=== PATIENT | male | born 1965 | race Caucasian/White ===

== ENCOUNTER 2021-07-13 15:40 | Inpatient (IN) | payer SELFPAY ==
[2021-07-13 16:41] LABS: Potassium 3.8 mmol/L (3.5-5.1); Troponin High Sensitivity 5.8 pg/mL (<58.9)
[2021-07-13 16:42] LABS: Absolute Lymphocytes (CBC) 0.8 K/uL (0.7-4.9); Hematocrit 39.6 % (39.6-49.0); Lymphocytes % 8.7 % (15.3-44.8); MPV 8.7 fL (7.6-11.3); RBC Red Blood Cell Count 4.78 M/uL (4.33-5.43)
--- NOTE | 2021-07-13 16:48 | RAD REPORT ---
EXAM DESCRIPTION: CT - Head Brain Wo Cont - 07/13/2021 4:42 pm CLINICAL HISTORY: Neuro deficit, acute, stroke suspected Headache, drowsiness COMPARISON: HEAD BRAIN W O CONTRAST dated 08/15/2012 TECHNIQUE: All CT scans are performed using dose optimization technique as appropriate and may inclu de automated exposure control or mA/KV adjustment according to patient size. FINDINGS: No intracranial hemorrhage, hydrocephalus or extra-axial fluid collection.Gliosis is prese nt in the distribution of the right middle cerebral artery compatible with old infarct.No areas of br ain edema or evidence of midline shift. The paranasal sinuses and mastoids are clear. The calvarium is intact. IMPRESSION: No acute intracranial abnormality. Large old right-sided middle cerebral artery territo ry infarct. If there is continued clinical concern for CVA, MR imaging of the brain would be recommended.
--- NOTE | 2021-07-13 18:16 | RAD REPORT ---
EXAM DESCRIPTION: RAD - Chest Single View - 07/13/2021 5:45 pm CLINICAL HISTORY: DYSPNEA Chest pain. COMPARISON: CHEST SINGLE VIEW dated 08/15/2012 FINDINGS: Portable technique limits examination quality. Asymmetric pulmonary opacities are present, worse on the right, likely representing pneumonia. The he art is normal in size. No displaced fractures.
--- NOTE | 2021-07-13 20:01 | RAD REPORT ---
EXAM DESCRIPTION: MRI - C Spine Wo Cont- 07/13/2021 7:47 pm CLINICAL HISTORY: arm numbness Neck pain, radiculopathy COMPARISON: No comparisonsNo comparisons FINDINGS: Cervical vertebral bodies are normal in height and alignment. No suspicious marrow edema or marrow replacing process. No fracture or traumatic subluxation. The craniocervical junction is normal. C2-3 level: Small posterior osteophyte/ disc complex is present with herniated disc material seen ext ending superiorly. This results in mild central canal narrowing. Left-sided uncovertebral spurring na rrows the left exit foramen. C3-4 level: Small disc/ osteophyte complex is present attenuating the anterior subarachnoid space. C4-5 level: Small disc/ osteophyte complex attenuates the anterior subarachnoid space. C5-6 level: Posterior osteophyte/ disc complex is present with left paracentral herniated component. Moderate bilateral uncovertebral spurring is seen significantly narrowing both exit foramina. C6-7 level: No significant findings. C7-T1 level: No significant findings. Cervical cord is normal in size and signal. There is a large mass in the subcutaneous soft tissues of the posterior neck measuring 5.1 x 3.8 cm. IMPRESSION: Significant bilateral exit foraminal stenosis at C5-6. Herniated discs are noted at C2-3 and C5-6. Large soft tissue mass is seen in the subcutaneous tissues of the posterior neck measuring 5.1 x 3.8 cm. This is of unclear etiology but could be malignant. Recommend clinical exam correlation.
--- NOTE | 2021-07-13 20:18 | RAD REPORT ---
EXAM DESCRIPTION: MRI - Brain Wo Cont - 07/13/2021 7:57 pm CLINICAL HISTORY: Neuro deficit, acute, stroke suspected Headache, drowsiness, CVA COMPARISON: Head Brain Wo Cont dated 07/13/2021 TECHNIQUE: Multi-sequence, multiplanar MR imaging of the brain was performed without contrast. FINDINGS: No intracranial hemorrhage, hydrocephalus or extra-axial fluid collections. No edema or sh ift of midline structures. No findings to suspect brain mass.Moderate sized area of gliosis right mid dle cerebral artery territory compatible with old infarction. There are extensive areas of acute infa rct is seen superior left frontal lobe and the left centrum semiovale white matter, largest measuring 26 mm. Additional punctate areas of CVA air seen right superior frontal lobe. No hemorrhagic compone nt. Midline structures are normally formed. Mastoid air cells and paranasal sinuses are clear. IMPRESSION: Extensive areas of acute CVA seen left superior frontal lobe cortex. In addition, multip le punctate infarcts present scattered throughout the left centrum semiovale and to a lesser extent t he right centrum semiovale white matter. The pattern of infarction raises suspicion for an embolic phenomenon.
--- NOTE | 2021-07-13 20:41 | ER ---
Nurse's Notes [facility] Name: Bernardino Watson Age: 55 yrs Sex: Male : 1965 Arrival Date: 07/13/2021 Time: 15:43 Bed 20 Private MD: Diagnosis: Cerebral infarction, unspecified Presentation: 07/13 15:47 Chief complaint: Patient states: had a stroke about 4-5 years ago that affected the iw left side of his body but now he has weakness on the right side of his body that started 3 days ago. Coronavirus screen: At this time, the client does not indicate any symptoms associated with coronavirus-19. Ebola Screen: Patient negative for fever greater than or equal to 101.5 degrees Fahrenheit, and additional compatible Ebola Virus Disease symptoms Patient denies exposure to infectious person. Patient denies travel to an Ebola-affected area in the 21 days before illness onset. No symptoms or risks identified at this time. No acute neurological deficit is noted. Pre-hospital glucose is not applicable to this patient. Initial Sepsis Screen: Does the patient meet any 2 criteria? No. Patient's initial sepsis screen is negative. Does the patient have a suspected source of infection? No. Patient's initial sepsis screen is negative. Risk Assessment: Do you want to hurt yourself or someone else? Patient reports no desire to harm self or others. Onset of symptoms was July 10, 2021. 15:47 Method Of Arrival: Wheelchair iw 15:47 Acuity: ZACH 3 iw Triage Assessment: 18:38 The onset of the patients symptoms was July 10, 2021 at 13:00. General: Appears in no haque apparent distress. Behavior is calm, cooperative. 18:39 Neuro: Reports numbness in right arm weakness in right arm. haque Stroke Activation: Symptom onset > 6 hours Physician: Stroke Attending; Name: ; Notified At: ; Arrived At: Physician: Chief Stroke Resident; Name: ; Notified At: ; Arrived At: Physician: Stroke Resident; Name: ; Notified At: ; Arrived At: Physician: ED Attending; Name: ; Notified At: ; Arrived At: Physician: ED Resident; Name: ; Notified At: ; Arrived At: Historical: - Allergies: 15:49 No Known Allergies; iw - Home Meds: 15:49 None [Active]; iw - PMHx: 15:49 CVA; iw - PSHx: 15:49 None; iw - Immunization history:: Client reports having NOT received the Covid vaccine. - Social history:: Smoking status: Patient reports the use of cigarette tobacco products, smokes one pack cigarettes per day. Screenin:53 Abuse screen: Denies threats or abuse. Nutritional screening: No deficits noted. haque Tuberculosis screening: No symptoms or risk factors identified. Fall Risk IV access (20 points). 21:06 Patient has been NPO before screening. The patient is alert, able to follow commands. ag7 The patient does not exhibit slurred or garbled speech The patient is not exhibiting difficulty speaking. The patient does not exhibit difficulty understanding words. The patient is able to swallow own secretions with no drooling or need for suction. Patient tolerated one teaspoon of water. No drooling, immediate coughing, gurgling, or clearing of the throat was noted. The patient tolerated 90mL of water. No drooling, immediate coughing, gurgling, or clearing of the throat was noted. The patient passed the bedside swallow screening. Oral medications may be given as ordered. Contact Physician for further diet orders. Provider notified of bedside swallow screening results: Naman Couch LUMBER SCALER-C. Assessment: 15:53 VAN Scoring: Arm Drift: Flaccid/no antigravity. Reassessment: pt has a notable lump on haque the back of his neck. pt reported that it has increase. Pain: Denies pain. Neuro: No deficits noted. 18:32 Patient has been NPO before screening. The patient is alert, and able to follow haque commands. The patient does not exhibit slurred or garbled speech. The patient is not exhibiting difficulty speaking. The patient does not exhibit difficulty understanding words. The patient is able to swallow own secretions with no drooling or need for suction. Patient tolerated one teaspoon of water. No drooling, immediate coughing, gurgling, or clearing of the throat was noted. The patient tolerated 90mL of water. No drooling, immediate coughing, gurgling, or clearing of the throat was noted. The patient passed the bedside swallow screening. Oral medications may be given as ordered. Contact Physician for further diet orders. Provider notified of bedside swallow screening results: Shaun ESTES. T-PA (Activase) Screening: Indications: Contraindications:. 19:12 Reassessment: Patient and/or family updated on plan of care and expected duration. Pain ag7 level reassessed. Patient is alert, oriented x 3, equal unlabored respirations, skin warm/dry/pink. patient c/o no right upper extremity mobility, sensation intact Patient denies pain at this time. 19:19 Reassessment: Patient off of the floor for MRI. ag7 20:07 Reassessment: Reassessment: Patient and/or family updated on plan of care and expected ag7 duration. Pain level reassessed. Patient is alert, oriented x 3, equal unlabored respirations, skin warm/dry/pink. Patient return from MRI via stretcher alert and awake family at bedside. 23:34 Reassessment: Patient and/or family updated on plan of care and expected duration. Pain ag7 level reassessed. Patient is alert, oriented x 3, equal unlabored respirations, skin warm/dry/pink. Report given to Britton MORROW, [facility] RM 219 Patient states feeling better. Vital Signs: 15:47 BP 138 / 75; Pulse 120; Resp 16; Temp 99.9; Pulse Ox 98% on R/A; Weight 75.75 kg; iw Height 6 ft. 2 in. (187.96 cm); Pain 0/10; 17:41 BP 141 / 81; Pulse 95; Resp 18; Pulse Ox 100% on R/A; haque 19:13 BP 150 / 79; Pulse 83; Resp 15; Pulse Ox 100% on R/A; Pain 0/10; ag7 15:47 Body Mass Index 21.44 (75.75 kg, 187.96 cm) iw NIH Stroke Scale Scores: 15:53 NIHSS Score: 10 haque 16:12 NIHSS Score: 4 [facility] ED Course: 15:43 Patient arrived in ED. ds1 15:49 Triage completed. iw 15:50 Arm band placed on. iw 15:53 Salome Franklin, CRISTHIAN is Primary Nurse. haque 15:55 Shaun Diallo PA is PHCP. jr8 15:55 Landon Lucio MD is Attending Physician. jr8 16:44 CT Head Brain wo Cont In Process Unspecified. EDMS 17:47 XRAY Chest (1 view) In Process Unspecified. EDMS 18:39 Patient has correct armband on for positive identification. Placed in gown. Bed in low haque position. Call light in reach. 18:39 No provider procedures requiring assistance completed. Inserted saline lock: 18 gauge haque in left antecubital area, using aseptic technique. 19:49 C Spine Wo Cont In Process Unspecified. EDMS 19:49 MRI - Brain Wo Cont In Process Unspecified. EDMS 20:41 Nahum Saavedra MD is Hospitalizing Provider. jr8 21:23 COVID-19/FLU A+B (Document "Date of Onset" if Symptomatic) Sent. ag7 07/14 00:34 Patient admitted, IV remains in place. ag7 Administered Medications: 07/13 20:38 Not Given (Physician Discretion): PlaVIX (clopidogrel) 75 mg PO once jr8 20:39 Not Given (Physician Discretion): Aspirin 81 mg PO once jr8 20:52 Drug: foLIC Acid 1 mg Route: IVPB; Site: left antecubital; ag7 20:52 Follow up: Response: No adverse reaction; IV Status: Completed infusion; IV Intake: ag7 0.2ml 20:53 Drug: Atorvastatin 40 mg Route: PO; ag7 21:30 Follow up: Response: No adverse reaction ag7 20:58 CANCELLED (PHYSICIAN REQUESTt): Eliquis (apixaban) 5 mg PO once ag7 21:06 Drug: PlaVIX (clopidogrel) 75 mg Route: PO; ag7 21:06 Drug: Aspirin 81 mg Route: PO; ag7 21:36 Follow up: Response: No adverse reaction ag7 21:14 Drug: Nicoderm CQ Patch 21 mg/24 hr 1 patches {Note: posterior right upper chest.} ag7 Route: Transdermal; Site: affected area; 21:44 Follow up: Response: No adverse reaction ag7 Intake: 20:52 IV: 0ml; Total: 0ml. ag7 Outcome: 20:41 Decision to Hospitalize by Provider. 8 07/14 00:33 Admitted to Med/surg accompanied by tech, via wheelchair, room 219, Report called to satish Jarquin RN Condition: stable 00:35 Patient left the ED. ag7 NIH Stroke Scale - NIH Stroke Score Date: 07/13/2021 Time: 15:53 Total Score = 10 1a. Level of Consciousness (LOC) - 0(Alert) 1b. Level of Consciousness (LOC) (Month \\T\\ Age) - 0(Both) 1c. LOC Commands (Open \\T\\ Closes Eyes/Hydraulic Mechanic) - 0(Both) 2. Best Gaze (Lateral Gaze Paresis) - 0(Normal) 3. Visual Field Loss - 0(No visual loss) 4. Facial Palsy - 0(Normal) 5a. Left Arm: Motor (10-second hold) - 4(No movement) 5b. Right Arm: Motor (10-second hold) - 4(No movement) 6a. Left Leg: Motor (5-second hold - always test supine) - 0(No drift) 6b. Right Leg: Motor (5-second hold - always test supine) - 0(No drift) 7. Limb Ataxia (finger/nose \\T\\ heel/rebollar - test with eyes open) - 1(Present in one limb) 8. Sensory Loss (pinprick arms/legs/face) - 1(Mild to moderate loss) 9. Best Language: Aphasia (description/naming/reading) - 0(No aphasia) 10. Dysarthria (speech clarity - read or repeat words) - 0(Normal) 11. Extinction and Inattention (visual/tactile/auditory/spatial/personal) - 0(No abnormality) Initials: NIH Stroke Scale - NIH Stroke Score Date: 07/13/2021 Time: 16:12 Total Score = 4 1a. Level of Consciousness (LOC) - 0(Alert) 1b. Level of Consciousness (LOC) (Month \\T\\ Age) - 0(Both) 1c. LOC Commands (Open \\T\\ Closes Eyes/Hydraulic Mechanic) - 0(Both) 2. Best Gaze (Lateral Gaze Paresis) - 0(Normal) 3. Visual Field Loss - 0(No visual loss) 4. Facial Palsy - 0(Normal) 5a. Left Arm: Motor (10-second hold) - 0(No drift) 5b. Right Arm: Motor (10-second hold) - 4(No movement) 6a. Left Leg: Motor (5-second hold - always test supine) - 0(No drift) 6b. Right Leg: Motor (5-second hold - always test supine) - 0(No drift) 7. Limb Ataxia (finger/nose \\T\\ heel/rebollar - test with eyes open) - 0(Absent) 8. Sensory Loss (pinprick arms/legs/face) - 0(Normal) 9. Best Language: Aphasia (description/naming/reading) - 0(No aphasia) 10. Dysarthria (speech clarity - read or repeat words) - 0(Normal) 11. Extinction and Inattention (visual/tactile/auditory/spatial/personal) - 0(No abnormality) Initials: jrRosette Signatures: Dispatcher [employer] [facility] Rosy Friedman ds1 Brandi Sher RN RN Shaun Daillo PA PA jr8 Salome Franklin RN RN Betsey Leroy RN RN ag7 Corrections: (The following items were deleted from the chart) 07/13 15:50 15:47 Pulse 120bpm; Resp 16bpm; Pulse Ox 98% RA; Temp 99.9F; 75.75 kg; Height 6 iw ft. 2 in.; BMI: 21.4; Pain 0/10; iw 20:08 19:19 Reassessment: Patient off of the floor for CT ag7 ag7 20:53 20:51 Eliquis (apixaban) 5 mg PO ag7 ag7 23:34 21:30 Response: No adverse reaction ag7 ag7 07/14 00:34 07/13 23:34 Reassessment: Report given to Britton MORROW, [facility] RM 219 ag7 ag7
--- NOTE | 2021-07-13 20:42 | EDPHYS ---
Physician Documentation [facility] Name: Bernardino Watson Age: 55 yrs Sex: Male : 1965 Arrival Date: 07/13/2021 Time: 15:43 Bed 20 Private MD: ED Physician Landon Lucio HPI: 07/13 16:09 This 55 yrs old Male presents to ER via Wheelchair with complaints of S/S of Possible jr8 Stroke, Numbness Of Arm. 16:09 The patient's problem is reported as weakness, in the right upper extremity. Onset: The jr8 symptoms/episode began/occurred acutely, 3 day(s) ago. Duration: The episode is continuous. The symptoms are alleviated by nothing. The symptoms are aggravated by nothing. Associated signs and symptoms: The patient has no apparent associated signs or symptoms. Severity of symptoms: At their worst the symptoms were moderate in the emergency department the symptoms are unchanged. Patient's baseline: Neuro: alert and fully oriented, Motor: no deficits, Ambulation: walks without assistance, Speech: normal. The patient has experienced a previous episode. The patient has not recently seen a physician. This is a 55-year-old male patient with a history of stroke in the past several years ago that presented to the emergency room today with paralysis of the right upper extremity. And having difficulty walking secondary to imbalance on right side. Patient stated that he had weakness and other neurologic deficits to the left side when he previously had a stroke which she is now aware, and has been doing well. 3 days ago started with weakness to the right arm and now cannot pick it up. Is supposed to be on antiplatelet therapy, blood pressure medicine, cholesterol medicine but is not on it currently and has not been for some time. Denies any other symptoms at this time.. Historical: - Allergies: 15:49 No Known Allergies; iw - Home Meds: 15:49 None [Active]; iw - PMHx: 15:49 CVA; iw - PSHx: 15:49 None; iw - Immunization history:: Client reports having NOT received the Covid vaccine. - Social history:: Smoking status: Patient reports the use of cigarette tobacco products, smokes one pack cigarettes per day. ROS: 16:09 Eyes: Negative for injury, pain, redness, and discharge, ENT: Negative for injury, jr8 pain, and discharge, Neck: Negative for injury, pain, and swelling, Cardiovascular: Negative for chest pain, palpitations, and edema, Respiratory: Negative for shortness of breath, cough, wheezing, and pleuritic chest pain, Abdomen/GI: Negative for abdominal pain, nausea, vomiting, diarrhea, and constipation, Back: Negative for injury and pain, MS/Extremity: Negative for injury and deformity, Skin: Negative for injury, rash, and discoloration. 16:09 Neuro: Positive for gait disturbance, weakness, of the right arm. Exam: 16:12 Head/Face: Normocephalic, atraumatic. Eyes: Pupils equal round and reactive to light, jr8 extra-ocular motions intact. Lids and lashes normal. Conjunctiva and sclera are non-icteric and not injected. Cornea within normal limits. Periorbital areas with no swelling, redness, or edema. ENT: Nares patent. No nasal discharge, no septal abnormalities noted. Tympanic membranes are normal and external auditory canals are clear. Oropharynx with no redness, swelling, or masses, exudates, or evidence of obstruction, uvula midline. Mucous membranes moist. Neck: Trachea midline, no thyromegaly or masses palpated, and no cervical lymphadenopathy. Supple, full range of motion without nuchal rigidity, or vertebral point tenderness. No Meningismus. Cardiovascular: Regular rate and rhythm with a normal S1 and S2. No gallops, murmurs, or rubs. Normal PMI, no JVD. No pulse deficits. Respiratory: Lungs have equal breath sounds bilaterally, clear to auscultation and percussion. No rales, rhonchi or wheezes noted. No increased work of breathing, no retractions or nasal flaring. Abdomen/GI: Soft, non-tender, with normal bowel sounds. No distension or tympany. No guarding or rebound. No evidence of tenderness throughout. Back: No spinal tenderness. No costovertebral tenderness. Full range of motion. Skin: Warm, dry with normal turgor. Normal color with no rashes, no lesions, and no evidence of cellulitis. MS/ Extremity: Pulses equal, no cyanosis. No external signs of trauma 16:12 Neuro: Orientation: to person, place, time \\T\\ situation. Mentation: is normal, Memory: is normal, immediate memory is intact, recent memory is intact, remote memory is intact, Cranial nerves: CN I not tested, CN II- XII are normal as tested, visual fajardo are intact. extraocular movements are intact, Facial palsy and sensory deficits are absent. Nystagmus is absent. Speech is clear and appropriate. Tongue strength is normal, Cerebellar function: normal finger to nose testing, heel to rebollar testing is normal, Motor: Paralysis to the right upper extremity, Sensation: no obvious gross deficits, seizure activity, is not displayed by the patient, Abnormal movements: there are no abnormal movements. 20:41 Radiologist reports: Old right sided infarct without new findings jr8 Vital Signs: 15:47 BP 138 / 75; Pulse 120; Resp 16; Temp 99.9; Pulse Ox 98% on R/A; Weight 75.75 kg; iw Height 6 ft. 2 in. (187.96 cm); Pain 0/10; 17:41 BP 141 / 81; Pulse 95; Resp 18; Pulse Ox 100% on R/A; haque 19:13 BP 150 / 79; Pulse 83; Resp 15; Pulse Ox 100% on R/A; Pain 0/10; ag7 15:47 Body Mass Index 21.44 (75.75 kg, 187.96 cm) iw NIH Stroke Scale Scores: 15:53 NIHSS Score: 10 haque 16:12 NIHSS Score: 4 jr8 MDM: 15:58 Patient medically screened. jr8 20:40 Data reviewed: vital signs, nurses notes, lab test result(s), EKG, radiologic studies, jr8 CT scan, MRI, plain films. Data interpreted: Pulse oximetry: on room air is 100 %. Interpretation: normal. Counseling: I had a detailed discussion with the patient and/or guardian regarding: the historical points, exam findings, and any diagnostic results supporting the discharge/admit diagnosis, lab results, radiology results, the need for further work-up and treatment in the hospital. 07/13 15:58 Order name: Basic Metabolic Panel; Complete Time: 16:07/13 15:58 Order name: CBC with Diff; Complete Time: 17:07/13 15:58 Order name: Magnesium; Complete Time: 16:59 07/13 15:58 Order name: NT PRO-BNP; Complete Time: 16:07/13 15:58 Order name: Troponin HS; Complete Time: 16:59 07/13 21:17 Order name: COVID-19/FLU A+B (Document "Date of Onset" if Symptomatic) 07/13 15:58 Order name: XRAY Chest (1 view); Complete Time: 18:24 07/13 15:58 Order name: CT Head Brain wo Cont; Complete Time: 16:59 07/13 16:56 Order name: C Spine Wo Cont; Complete Time: 20:09 EDMS 07/13 16:59 Order name: MRI - Brain Wo Cont; Complete Time: 20:35 07/13 22:32 Order name: SARS-COV-2 RT PCR; Complete Time: 22:33 EDMS 07/13 15:58 Order name: EKG; Complete Time: 15:58 07/13 15:58 Order name: Cardiac monitoring; Complete Time: 16:30 07/13 15:58 Order name: EKG - Nurse/Tech; Complete Time: 16:30 07/13 15:58 Order name: IV Saline Lock; Complete Time: 16:30 07/13 15:58 Order name: Labs collected and sent; Complete Time: 16:30 07/13 15:58 Order name: O2 Per Protocol; Complete Time: 16:30 07/13 15:58 Order name: O2 Sat Monitoring; Complete Time: 16:30 Administered Medications: 20:38 Not Given (Physician Discretion): PlaVIX (clopidogrel) 75 mg PO once 20:39 Not Given (Physician Discretion): Aspirin 81 mg PO once 20:52 Drug: foLIC Acid 1 mg Route: IVPB; Site: left antecubital; ag7 20:52 Follow up: Response: No adverse reaction; IV Status: Completed infusion; IV Intake: ag7 0.2ml 20:53 Drug: Atorvastatin 40 mg Route: PO; ag7 21:30 Follow up: Response: No adverse reaction ag7 20:58 CANCELLED (PHYSICIAN REQUESTt): Eliquis (apixaban) 5 mg PO once ag7 21:06 Drug: PlaVIX (clopidogrel) 75 mg Route: PO; ag7 21:06 Drug: Aspirin 81 mg Route: PO; ag7 21:36 Follow up: Response: No adverse reaction 7 21:14 Drug: Nicoderm CQ Patch 21 mg/24 hr 1 patches {Note: posterior right upper chest.} ag7 Route: Transdermal; Site: affected area; 21:44 Follow up: Response: No adverse reaction ag7 Disposition Summary: 07/13/21 20:41 Hospitalization Ordered Hospitalization Status: Inpatient Admission jr8 Provider: Nahum Saavedra Location: Telemetry/MedSurg (Inpatient) jr8 Condition: Stable jr8 Problem: new jr8 Symptoms: are unchanged jr8 Bed/Room Type: [place] [address] Room Assignment: 219(07/13/21 22:41) Diagnosis - Cerebral infarction, unspecified jr8 Forms: - Medication Reconciliation Form jr8 - SBAR form jr8 NIH Stroke Scale - NIH Stroke Score Date: 07/13/2021 Time: 15:53 Total Score = 10 1a. Level of Consciousness (LOC) - 0(Alert) 1b. Level of Consciousness (LOC) (Month \\T\\ Age) - 0(Both) 1c. LOC Commands (Open \\T\\ Closes Eyes/Aquatics Lifeguard) - 0(Both) 2. Best Gaze (Lateral Gaze Paresis) - 0(Normal) 3. Visual Field Loss - 0(No visual loss) 4. Facial Palsy - 0(Normal) 5a. Left Arm: Motor (10-second hold) - 4(No movement) 5b. Right Arm: Motor (10-second hold) - 4(No movement) 6a. Left Leg: Motor (5-second hold - always test supine) - 0(No drift) 6b. Right Leg: Motor (5-second hold - always test supine) - 0(No drift) 7. Limb Ataxia (finger/nose \\T\\ heel/rebollar - test with eyes open) - 1(Present in one limb) 8. Sensory Loss (pinprick arms/legs/face) - 1(Mild to moderate loss) 9. Best Language: Aphasia (description/naming/reading) - 0(No aphasia) 10. Dysarthria (speech clarity - read or repeat words) - 0(Normal) 11. Extinction and Inattention (visual/tactile/auditory/spatial/personal) - 0(No abnormality) Initials: haque NIH Stroke Scale - NIH Stroke Score Date: 07/13/2021 Time: 16:12 Total Score = 4 1a. Level of Consciousness (LOC) - 0(Alert) 1b. Level of Consciousness (LOC) (Month \\T\\ Age) - 0(Both) 1c. LOC Commands (Open \\T\\ Closes Eyes/Aquatics Lifeguard) - 0(Both) 2. Best Gaze (Lateral Gaze Paresis) - 0(Normal) 3. Visual Field Loss - 0(No visual loss) 4. Facial Palsy - 0(Normal) 5a. Left Arm: Motor (10-second hold) - 0(No drift) 5b. Right Arm: Motor (10-second hold) - 4(No movement) 6a. Left Leg: Motor (5-second hold - always test supine) - 0(No drift) 6b. Right Leg: Motor (5-second hold - always test supine) - 0(No drift) 7. Limb Ataxia (finger/nose \\T\\ heel/rebollar - test with eyes open) - 0(Absent) 8. Sensory Loss (pinprick arms/legs/face) - 0(Normal) 9. Best Language: Aphasia (description/naming/reading) - 0(No aphasia) 10. Dysarthria (speech clarity - read or repeat words) - 0(Normal) 11. Extinction and Inattention (visual/tactile/auditory/spatial/personal) - 0(No abnormality) Initials: jr8 Addendum: 07/16/2021 07:18 Co-signature as Attending Physician, Landon Lucio MD I agree with the kdr assessment and plan of care. Signatures: Dispatcher [employer] EDNC Heydi Norman RN RN mw Rittger, Kevin, MD MD [facility] Brandi Sher RN RN Shaun Diallo PA PA jr8 Naman Couch, SUPERVISOR MAILS-C SUPERVISOR MAILS-Cla1 Betsey Leroy RN RN ag7 Corrections: (The following items were deleted from the chart) 07/13 16:12 16:09 This is a 55-year-old male patient with a history of stroke in the past jr8 several years ago that presented to the emergency room today with paralysis of the right upper extremity. Patient stated that he had weakness and other neurologic deficits to the left side when he previously had a stroke which she is now aware, and has been doing well. 3 days ago started with weakness to the right arm and now cannot pick it up. Is supposed to be on antiplatelet therapy, blood pressure medicine, cholesterol medicine but is not on it currently and has not been for some time. Denies any other symptoms at this time.. jr8 : 20:40 Eliquis (apixaban) 5 mg PO once ordered. jr8 ag7 : 20:52 Eliquis (apixaban) 5 mg PO once given. ag7 ag7 : 20:53 Eliquis (apixaban) 5 mg PO once ordered. ag7 ag7 22:41 20:41 jr8
[2021-07-13] MEDS ORDERED: ATORVASTATIN 40 MG TAB ONE (20:45)
[2021-07-13] MEDS ORDERED: ASPIRIN 81 MG CHEWABLE TABLET ONE (20:45)
[2021-07-13] MEDS ORDERED: CLOPIDOGREL 75 MG TABLET ONE (20:45)
[2021-07-13] MEDS ORDERED: FOLIC ACID 5 MG/ML VIAL ONE (20:50)
[2021-07-13] MEDS ORDERED: NICOTINE 21 MG/PAT TD ONE (21:15)
[2021-07-13] MEDS ORDERED: ONDANSETRON 4 MG/2 ML VIAL IV PRN (21:32)
--- NOTE | 2021-07-13 22:11 | P.HP ---
Certification for Inpatient Patient admitted to: Inpatient With expected LOS: >2 Midnights Patient will require the following post-hospital care: None Practitioner: I am a practitioner with admitting privileges, knowledge of patient current condition, hospital course, and medical plan of care. Services: Services provided to patient in accordance with Admission requirements found in Title 42 Section 412.3 of the Code of Federal Regulations Patient History Date of Service: 07/13/21 History of Present Illness: 55-year-old male with history of CVA, medical noncompliance, tobacco and alcohol abuse presents emergency department for right upper extremity paresthesias, weakness. Patient reports symptoms began 3 to 4 days ago cannot be much more specific, he does report that he has a history of CVA approximately 5 years ago affecting his left upper and lower extremity, he has been working through this and has gained most of the use of his left upper and lower extre mity back. Patient noted to have flaccid right upper extremity, mild weakness to the right lower extremity. His CT was negative for acute findings although MRI of the brain revealed extensive area of acute CVA seen in the superior frontal lobe cortex in addition multiple punctate infarcts present scattered throughout the left centrum semiovale and to a lesser extent the right centrum semiovale white matter suspicious for embolic phenomenon. ED provider discussed case with neurology who recommends admission, stroke evaluation, Eliquis. Patient did pass all screen. Allergies No Known Allergies Allergy (Verified 08/15/12 09:21) - Past Medical/Surgical History -: CVA -: Alcohol abuse -: Tobacco abuse -: None Psychosocial/ Personal History: Patient lives at home with a friend - Family History Family History: Reviewed- Non-Contributory - Social History Smoking Status: Current every day smoker Counseled patient to stop smoking for: less than 10 minutes Smoking therapy provided: Yes Alcohol use: Yes CD- Drugs: No Caffeine use: Yes Place of Residence: Home Review of Systems 10-point ROS is otherwise unremarkable Neurological: Weakness (Right upper extremity weakness) Physical Examination - Physical Exam General: Alert, In no apparent distress, Oriented x3 HEENT: Atraumatic, PERRLA, Mucous membr. moist/pink, EOMI, Sclerae nonicteric Neck: Supple, 2+ carotid pulse no bruit, No LAD, Without JVD or thyroid abnormality Respiratory: Clear to auscultation bilaterally, Normal air movement Cardiovascular: Regular rate/rhythm, Normal S1 S2 Gastrointestinal: Normal bowel sounds, No tenderness Musculoskeletal: No tenderness Integumentary: No rashes Neurological: Normal gait, Normal speech, Normal tone, Normal affect, Abnormal strength (1/5 strength right upper extremity,4/5 strength right lower extremity) - Studies Laboratory Data (last 24 hrs) 07/13/21 16:14: WBC 9.3, Hgb 13.6, Hct 39.6, Plt Count 273 07/13/21 16:14: Sodium 136, Potassium 3.8, BUN 17, Creatinine 0.91, Glucose 104, Magnesium 2.0 Assessment and Plan - Plan Assessment: Acute CVA Tobacco abuse Alcohol abuse Plan: Acute CVA: CVA distribution 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 fib. For this reason for neurology recommend starting patient on Eliquis rather than aspirin/Plavix in addition to folic acid and a statin. Echocardiogram, carotid Doppler, speech/physical/occupational therapy ordered. Neurology consult in place. Counseled patient at length about the need for reducing his risk factors including getting control of blood pressure, cessation of alcohol and tobacco products. Tobacco abuse: Smokes 1.5 packs/day given NicoDerm patch counseled on need for cessation Alcohol abuse: Reports he drinks about a sixpack per day will monitor for signs of alcohol withdrawal recommendation for cessation provided. DVT PPX: Eliquis Code status: Full Discharge Plan: Home Plan to discharge in: 48 Hours - Advance Directives Does patient have a Living Will: No Does patient have a Durable POA for Healthcare: No - Code Status/Comfort Care Code Status Assessed: Yes (Full code) Critical Care: No Time Spent Managing Pts Care (In Minutes): 55
[2021-07-14 00:46] VITALS: BMI 18.7
[2021-07-14 04:40] LABS: Absolute Lymphocytes (CBC) 0.8 K/uL (0.7-4.9); Hematocrit 39.2 % (39.6-49.0); Lymphocytes % 11.6 % (15.3-44.8); MPV 8.7 fL (7.6-11.3); RBC Red Blood Cell Count 4.74 M/uL (4.33-5.43)
[2021-07-14 05:03] LABS: Albumin 2.6 g/dL (3.4-5.0); Bilirubin Total 0.4 mg/dL (0.2-1.0); Potassium 3.6 mmol/L (3.5-5.1); Protein, Total 6.7 g/dL (6.4-8.2); Thyroid Stimulating Hormone 1.06 uIU/mL (0.360-3.740)
--- NOTE | 2021-07-14 06:34 | P.PN ---
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
--- NOTE | 2021-07-14 07:31 | EKG ---
Test Date: 2021-07-13 Test Time: 16:15:32 Size Worker: G[place]LAND MEASUREMENT RESULTS: Intervals: Rate: 99 IA: 136 QRSD: 84 QT: 350 QTc: 449 [place]: P: 75 IA: 136 QRS: 86 T: 73 INTERPRETIVE STATEMENTS: Normal sinus rhythm Possible Left atrial enlargement Anterior infarct, age undetermined Abnormal ECG Compared to ECG 08/15/2012 10:00:54 Myocardial infarct finding now present Electronically Signed On 07-14-21 07:29:54 CDT by Eligio Prieto
[2021-07-14] MEDS: APIXABAN 5 MG TABLET PO SCH ×2 (07:56→20:23)
[2021-07-14] MEDS: FOLIC ACID 1 MG TABLET PO SCH (07:56)
[2021-07-14] MEDS: NICOTINE 21 MG/PAT TD SCH (07:57)
[2021-07-14] MEDS: lisinopriL 5 MG TAB PO SCH (07:58)
[2021-07-14] MEDS ORDERED: POTASSIUM CL SA 10 MEQ TAB PO ONE (09:00)
--- NOTE | 2021-07-14 09:25 | RAD REPORT ---
EXAM DESCRIPTION: US - CP - 07/14/2021 12:26 am CLINICAL HISTORY: acute CVA Headache, drowsiness COMPARISON: No comparisons TECHNIQUE: Real-time sonographic evaluation of both carotid systems was performed. Doppler interroga tion was performed with waveform tracing bilaterally. FINDINGS: The right internal carotid artery appears occluded. Left carotid bulb demonstrates mild soft plaque. Stenosis is less than 50% based on NASCET criteria. Antegrade flow is seen in both vertebral arteries. IMPRESSION: Occluded right internal carotid artery. Mild soft plaquing is seen resulting in stenosis of less than 50% on the left.
[2021-07-14] MEDS ORDERED: ATORVASTATIN 40 MG TAB PO SCH (21:00)
--- NOTE | 2021-07-15 01:30 | CON ---
Reason For Consultation: Consultation called because of stroke. History Of Present Illness: Mr. Watson is a 55-year-old patient with a history of alcohol, tobacco abuse, and chronic stroke affecting his left upper and lower extremity for which he has recovered willi y well. He comes to [facility] with about 4 days of more right-sided weakness which is inte nse in the right upper extremity compared to the right lower extremity. He did not seek medical atte ntion initially until 4 days later came to [facility] when he was without outside any window for tPA. A stroke 5 years ago affected the left upper and lower extremity and he thought he recover ed perhaps back to full strength. It is new stroke when he was seen at [facility], which is 07/13/2021, was negative on the CT scan despite the length of time, which the patient had the stroke s back his brain MRI, which was done yesterday identified numerous extensive areas of acute stroke in the left superior frontal lobe. In addition to multiple punctate infarcts throughout the left centr um semiovale and to a lesser extent the right centrum semiovale white matter. The findings were susp icious for cardioembolic phenomenon given the left and right appearance. The size of the largest one was 26 mm and 2.6 cm in the left frontal lobe. He did have a carotid artery ultrasound, which showe d an occluded right internal carotid artery and mild soft plaque seen resulting in stenosis of 50% of the left internal carotid artery. He has a stroke. It should be noted it is new stroke, it is affe cting the right body coming from the left brain mostly, but there are also bilateral findings and so the occlusion of the right internal carotid artery is likely more chronic findings, perhaps related t o his initial stroke 5 years ago. Again, echocardiogram is pending. His cervical spine MRI showed s ignificant bilateral foraminal stenosis at the C5-C6 level. In addition, there is a large mass in th e subcutaneous soft tissue in the posterior neck measuring 5.1 x 3.8 cm possibly a lipoma. The radio logist notes suggest it could even be a malignant mass and should be explored further probably by ENT . Past Medical History: As noted. Allergies: NO KNOWN DRUG ALLERGIES. Family History: Noncontributory. Social History: The patient smokes cigarettes on a regular basis. Drinks alcohol on a regular basis . Denies IV drugs. Current Medications: Now placed on Eliquis 5 mg twice daily, although it should be noted the patient does not have insurance and is not likely to be able to afford Eliquis. The possibility of Coumadin was discussed with the patient. Also now on Lipitor 40 mg at bedtime, folate 1 mg daily, Prinivil 5 mg daily, and nicotine patch. Review of Systems: The patient has had some incoordination, difficulty gait, balance, and right upper extremity weakness much out of proportion right lower extremity weakness or right facial weakness. Also chronic mass i n the posterior neck. Otherwise, no recent nausea, vomiting, myalgias, arthralgias, rash, headache, weight change, or psychiatric issues. Physical Examination: Vital Signs: Blood pressure 129/77, pulse 86, respiratory rate 16, temperature 97.6, oxygen saturati on 100% on room air, weight 145 pounds, height 62, and BMI 18. General: Mr. Watson is resting in bed. He looks much, much older than his stated age. He has poor dentition, otherwise nowak in the face and mustache and sideburns with graying appearance also on th e ears and the head. HEENT: Normocephalic and atraumatic. Sclerae anicteric. Oropharynx is moist. Neck: Supple. Chest: Clear. Heart: Regular. Extremities: Show no significant edema, cyanosis, or clubbing. Neurologic: He is alert and oriented to situation, place, person, despite the extensive strokes he f ollows commands appropriately. Cranial nerves did not show any obvious deficits despite the patient' s findings on the MRI. He has motor exam shows no strength in the proximal or distal right upper ext remity 0/5. Unable to reconstruct the shoulders and the biceps much forearm at all opens and closes his best. His right lower extremity 4/5. Left upper and lower extremity 5/5. Sensation decreased t o light touch temperature in the right upper and lower extremity compared to the left. Coordination cannot assess in the right upper extremity because of weakness, intact in the left upper and lower ex tremity. In terms of his gait, he was able to use a platform walker in from transfers. He ambulated 50 feet with moderate assistance using a front wheel walker. He is able sidestepping and supported standing with the help of an assistive device. Laboratory Studies: Complete blood count with differential is essentially unremarkable. Chemistries unremarkable. Glucose ranged 104 to 125. Liver function studies normal. LDL cholesterol 91, HDL c holesterol 41, TSH 1.06, T4 1.34. COVID-19 testing is negative. His electrocardiogram shows normal sinus rhythm with possible left atrial enlargement, anterior infarct, age-undetermined. Assessment: Mr. Watson is a 55-year-old patient with tobacco and alcohol use, chronic stroke, now c omes with new stroke affecting his left brain and right brain suggestive of cardioembolic disease. H e has a dense right upper extremity paresis lesser extent of the right lower extremity paresis and se nsory disturbance and significant gait instability. His transthoracic echocardiogram is pending; how ever, he likely needs a transesophageal echocardiogram to rule out cardiac thrombus. Plan: 1.The patient cannot afford Eliquis and likely will have to be on Coumadin. Follow up with cardiolo gist. In addition, he should stop smoking and drinking. 2.His right internal carotid artery is likely clot chronically obstructed, his left 50% obstructed. He may benefit from a 4-vessel angiogram for potential intervention in the left internal carotid art hung. 3.He will be discharged today and will work on having physical therapy outpatient if possible, [facility], that is depending on his insurance coverage and ability to financing on his own. ESSIE/RAJ Voice ID: [id number] Report ID: [id number]
[2021-07-15 04:04] LABS: Absolute Lymphocytes (CBC) 0.9 K/uL (0.7-4.9); Hematocrit 40.4 % (39.6-49.0); Lymphocytes % 12.3 % (15.3-44.8); MPV 8.7 fL (7.6-11.3); RBC Red Blood Cell Count 4.81 M/uL (4.33-5.43)
[2021-07-15 04:18] LABS: Albumin 2.7 g/dL (3.4-5.0); Bilirubin Total 0.4 mg/dL (0.2-1.0); Protein, Total 6.9 g/dL (6.4-8.2)
[2021-07-15] MEDS: APIXABAN 5 MG TABLET PO SCH (08:03)
[2021-07-15] MEDS: NICOTINE 21 MG/PAT TD SCH (08:03)
[2021-07-15] MEDS: FOLIC ACID 1 MG TABLET PO SCH (08:03)
--- NOTE | 2021-07-15 08:21 | ECHO ---
HEIGHT: 6 ft 2 in WEIGHT: 145 lb 11.2 oz DATE OF STUDY: 07/14/[address]: Naman Couch NP 2-DIMENSIONAL: YES M.MODE: YES DOPPLER: YES COLOR FLOW: YES TDS: NO PORTABLE: YES DEFINITY: NO BUBBLE STUDY: NO DIAGNOSIS: CEREBRAL VASCULAR ACCIDENT CARDIAC HISTORY: CATHERIZATION: NO SURGERY: NO PROSTHETIC VALVE: NO PACEMAKER: NO MEASUREMENTS (cm) DIASTOLIC (NORMALS) SYSTOLIC (NORMALS) IVSd 1.0 (0.6-1.2) LA Diam 2.3 (1.9-4.0) LVEF 67% LVIDd 3.9 (3.5-5.7) LVIDs 2.5 (2.0-3.5) %FS 37% LVPWd 1.0 (0.6-1.2) Ao Diam 2.4 (2.0-3.7) 2 DIMENSIONAL ASSESSMENT: RIGHT ATRIUM: NORMAL LEFT ATRIUM: NORMAL RIGHT VENTRICLE: NORMAL LEFT VENTRICLE: NORMAL TRICUSPID VALVE: NORMAL MITRAL VALVE: NORMAL PULMONIC VALVE: NORMAL AORTIC VALVE: NORMAL PERICARDIAL EFFUSION: NONE AORTIC ROOT: NORMAL LEFT VENTRICULAR WALL MOTION: NORMAL DOPPLER/COLOR FLOW: MILD TRICUSPID REGURGITATION. COMMENTS: MILD TRICUSPID REGURGITATION. NORMAL RIGHT VENTRICULAR SYSTOLIC PRESSURE. NORMAL LEFT VENTRICULAR SIZE AND FUNCTION. NO VEGETATION OR THROMBUS. TECHNOLOGIST: Ede BLANCO
[2021-07-15] MEDS: lisinopriL 5 MG TAB PO SCH (08:57)
[2021-07-15 09:04] VITALS: O2SAT 99
[2021-07-15 12:48] VITALS: BP 134/65; TEMP 97.8
--- NOTE | 2021-07-16 18:12 | P.DS ---
Admission Date: 07/13/21 Discharge Date: 07/15/21 Disposition: ROUTINE DISCHARGE Discharge Condition: GOOD Consultations: Neurology - Dr. Blas Procedures: Problem List Acute CVA, concerning for cardio-embolic CVA; RUE weakness prior CVA with mild LUE residual weakness nicotine dependence alcohol dependence Brief History of Present Illness: 55yo M, PMH: CVA, nicotine and alcohol dependence. Presents to ED for right upper extremity paresthesias, weakness. Patient reports symptoms began 3 to 4 days ago cannot be much more specific. In the ED, Patient noted to have flaccid right upper extremity, mild weakness to the right lower extremity. His CT was negative for acute findings although MRI of the brain revealed extensive area of acute CVA seen in the superior frontal lobe cortex in addition multiple punctate infarcts present scattered throughout the left centrum semiovale and to a lesser extent the right centrum semiovale white matter suspicious for embolic phenomenon. ED provider discussed case with neurology who recommends admission, stroke evaluation, Eliquis. Hospital Course: Patient was found to have new areas of recent strokes, suggestive of cardioembolic etiology. Neurology was consulted, recommended eliquis 5mg BID, statin, folic acid. Patient was monitored on telemetry and did not have any arrhythmias. Presumed to have paroxysmal atrial fibrillation. He would benefit from outpatient heart monitoring to further evaluate. Discharged with savings card for Eliquis, food services director/case management were consulted, patient given instructions on how to enroll in savings plan to continue eliquis after 1st free 30 day period Patient's blood pressure was mildly elevated 130s-140s systolic. He will followup with PCP in 1-2 weeks, can be re-evaluated and determined at that time if will need blood pressure medication. For now, will allow for slight permissive hypertension. Patient instructed to ambulate slowly, fall precautions. Outpatient physical therapy. Follow up with Dr. Blas, Neurology - in 3-4 weeks. Neck mass - likely lipoma, but recommend follow up with ENT, or further discussion with PCP regarding possible biopsy or ultrasound investigation to r/o malignancy. Vital Signs/Physical Exam: Temp Pulse Resp BP Pulse Ox 97.8 F 83 16 134/65 99 07/15/21 11:00 07/15/21 11:00 07/15/21 11:00 07/15/21 11:00 07/15/21 11:00 Physical exam GEN: Alert, oriented, NAD HEENT: Normal conjunctiva, sclera anicteric posterior neck : large soft mass, nontender CV: Regular rate and rhythm, no edema Pulm: Nonlabored respirations on room air Neuro: Normal speech, normal affect, mild diminished sensation of RUE, no strength in RUE (0/5), ~10degrees of movement of R fingers; RLE (4/5 strength), LUE/LLE: 5/5 strength Laboratory Data at Discharge: WBC 7.5 K/uL (4.3-10.9) 07/15/21 02:55 Hgb 13.5 g/dL (13.6-17.9) L 07/15/21 02:55 Hct 40.4 % (39.6-49.0) 07/15/21 02:55 Plt Count 275 K/uL (152-406) 07/15/21 02:55 Sodium 137 mmol/L (136-145) 07/15/21 02:55 Potassium 4.0 mmol/L (3.5-5.1) 07/15/21 02:55 BUN 24 mg/dL (7-18) H 07/15/21 02:55 Creatinine 0.74 mg/dL (0.55-1.3) 07/15/21 02:55 Glucose 88 mg/dL (74-106) 07/15/21 02:55 Magnesium 2.0 mg/dL (1.8-2.4) 07/13/21 16:14 Total Bilirubin 0.4 mg/dL (0.2-1.0) 07/15/21 02:55 AST 20 U/L (15-37) 07/15/21 02:55 ALT 14 U/L (12-78) 07/15/21 02:55 Alkaline Phosphatase 104 U/L (45-117) 07/15/21 02:55 Triglycerides 93 mg/dL (<150) 07/14/21 03:28 Cholesterol 151 mg/dL (<200) 07/14/21 03:28 HDL Cholesterol 41 mg/dL (40-60) 07/14/21 03:28 Cholesterol/HDL Ratio 3.68 07/14/21 03:28 Home Medications: Apixaban [Eliquis] 5 mg PO BID 30 Days #60 tablet 07/15/21 Atorvastatin Calcium [Lipitor] 40 mg PO BEDTIME 30 Days #30 tablet 07/15/21 Folic Acid 1 mg PO DAILY 30 Days #30 tablet 07/15/21 New Medications: Apixaban [Eliquis] 5 mg PO BID 30 Days #60 tablet Folic Acid 1 mg PO DAILY 30 Days #30 tablet Atorvastatin Calcium [Lipitor] 40 mg PO BEDTIME 30 Days #30 tablet Diet: AHA Activity: Fall precautions Followup: Alli Blas MD [ASSOCIATE-ACTIVE - CAN ADMIT] - NONE,NONE [Primary Care Provider] - Time spent managing pt's care (in minutes): 45
== END 2021-07-15 13:00 | disposition home or self-care (01) | DRG 65 ==
LOC: ER 15:40 → ERHOLD 21:03 → 2ND 23:45
PROVIDERS: ADMIT Hospitalist; ATTEND Hospitalist
DX: I63.40 Cerebral infarction due to embolism of unspecified cerebral artery (principal); G81.91 Hemiplegia, unspecified affecting right dominant side; G81.01 Flaccid hemiplegia affecting right dominant side; I69.354 Hemiplegia and hemiparesis following cerebral infarction affecting left non-dominant side; R20.9 Unspecified disturbances of skin sensation; R26.89 Other abnormalities of gait and mobility; R29.710 NIHSS score 10; F10.10 Alcohol abuse, uncomplicated; I48.0 Paroxysmal atrial fibrillation; D17.0 Benign lipomatous neoplasm of skin and subcutaneous tissue of head, face and neck; F17.210 Nicotine dependence, cigarettes, uncomplicated; Z91.19 Patient's noncompliance with other medical treatment and regimen; Z20.822 Contact with and (suspected) exposure to COVID-19
CPT/HCPCS: 36415; 70450; 70551; 71045; 72141; 80048; 80053; 80061; 83735; 83880; 84439; 84443; 84484; 85025; 93005; 93306; 93880; 96374; 97116; 97161; 97530; 99285; U0003